=== PATIENT | male | born 1930 | race Caucasian/White ===

== ENCOUNTER 2021-04-24 19:09 | Emergency (ER) | payer MEDICARE, OTHER ==
[~2021-04-24] VITALS: Ht 175.3 cm; Wt 66.3 kg
[2021-04-24 19:27] VITALS: BP 166/57
== END 2021-04-24 20:13 | disposition home or self-care (01) ==
LOC: ER 19:10
DX: R60.9 Edema, unspecified (principal); I10 Essential (primary) hypertension
CPT/HCPCS: 99281

== ENCOUNTER 2022-01-08 12:04 | Inpatient (IN) | payer MEDICARE, OTHER ==
[~2022-01-08] VITALS: Ht 172.7 cm; Wt 74.2 kg
[2022-01-08] VITALS (9 sets, daily range): BP systolic 123–159; BP diastolic 44–59
[2022-01-08 13:01] LABS: BASOPHILS % (AUTO) 0.6 % (0-1); EOSINOPHILS # (AUTO) 0.1 X10'3 (0-0.9); LYMPHOCYTES # (AUTO) 0.9 X10'3 (1.1-4.8); LYMPHOCYTES % (AUTO) 14.8 % (21-51); MEAN CORPUSCULAR HEMOGLOBIN 24.9 PG (27.0-31.0); MEAN CORPUSCULAR HGB CONC 32.1 g/dL (33.0-36.5); MEAN CORPUSCULAR VOLUME 77.5 FL (78-98); MEAN PLATELET VOLUME 8.1 FL (7.4-10.4); MONOCYTES # (AUTO) 0.6 X10'3 (0-0.9); MONOCYTES % (AUTO) 10.2 % (2-12); NEUTROPHILS # (AUTO) 4.7 X10'3 (1.8-7.7); NEUTROPHILS % (AUTO) 73.4 % (42-75); PLATELET COUNT 213 X10'3 (140-440); RED BLOOD COUNT 2.79 X10'6 (4.70-6.10); RED CELL DISTRIBUTION WIDTH 18.7 % (11.5-14.5); WHITE BLOOD COUNT 6.4 X10'3 (4.5-11.0)
[2022-01-08 13:04] LABS: HEMATOCRIT 21.6 % (42.0-52.0); HEMOGLOBIN 6.9 g/dl (14.0-17.9)
[2022-01-08 13:15] LABS: ALANINE AMINOTRANSFERASE 13 U/L (12-78); ALBUMIN 3.5 G/DL (3.4-5.0); ALBUMIN/GLOBULIN RATIO 1.7 (1.1-1.5); ALKALINE PHOSPHATASE 69 IU/L (46-116); ANION GAP 11 (8-16); ASPARTATE AMINO TRANSFERASE 19 U/L (10-37); BILIRUBIN,TOTAL 0.4 MG/DL (0.1-1.0); BLOOD UREA NITROGEN 65 MG/DL (7-18); BUN/CREATININE RATIO 39.4 (5.4-32.0); CHLORIDE 103 MMOL/L (99-107); CREATININE 1.65 MG/DL (0.60-1.10); GLUCOSE 106 MG/DL (70-104); POTASSIUM 4.1 MMOL/L (3.5-5.1); SODIUM 138 MMOL/L (135-145); TOTAL CARBON DIOXIDE 24.5 MMOL/L (24-32); TOTAL PROTEIN 5.6 G/DL (6.4-8.2); eGFR 39 ML/MIN
[2022-01-08 13:57] LABS: ANISOCYTOSIS 2+; MICROCYTOSIS 1+; PLATELET ESTIMATE NORMAL
[2022-01-08 13:58] LABS: ELLIPTOCYTES 1+; SCHISTOCYTES FEW
[2022-01-08 13:59] LABS: ACANTHOCYTES FEW; BURR CELLS FEW
[2022-01-08] MEDS ORDERED: normal saline 1000ML IV soln IVB ONE (14:05)
[2022-01-08] MEDS ORDERED: aspirin 325mg tablet PO ONE (14:05)
[2022-01-08] MEDS ORDERED: iohexol 350MG/ML 100ml bottle IV ONE (14:25)
--- NOTE | 2022-01-08 14:29 | NUR ---
pt going to ct scan.
--- NOTE | 2022-01-08 14:30 | NUR ---
pt received 1l of n.s enroute .no admin the iv fluid .primary nurse is aware.
[2022-01-08] MEDS ORDERED: CefTRIAXone 2gm/NS 100ml IVPB 100 ML IV ONE (15:05)
[2022-01-08] MEDS: pantoprazole 40MG/NS 100ML BAG 100 ML IV SCH ×2 (15:22→15:56)
[2022-01-08 15:52] LABS: OCCULT BLOOD STOOL POSITIVE (Neg)
[2022-01-08] MEDS ORDERED: potassium Cl 20 mEq SR tablet PO PRN ×2 (16:25)
[2022-01-08] MEDS ORDERED: magnesium 4gm in 100ml NS 100 ML IV PRN (16:25)
[2022-01-08] MEDS ORDERED: naloxone 0.4 mg/ml inj IV PRN (16:25)
[2022-01-08] MEDS ORDERED: potassium CL 10mEq/100ml bag 100 ML IV PRN (16:25)
[2022-01-08] MEDS ORDERED: magnesium 2GM in 50ml NS 50 ML IV PRN (16:25)
[2022-01-08] MEDS ORDERED: magnesium Cl slow-release 64mg tablet PO PRN (16:25)
[2022-01-08] MEDS ORDERED: CLOP75TA34 PO (16:44)
[2022-01-08] MEDS ORDERED: ROSU10TA28 PO (16:44)
[2022-01-08] MEDS ORDERED: AMLO10TA13 PO (16:44)
[2022-01-08] MEDS ORDERED: FURO20TA4 PO (16:44)
[2022-01-08] MEDS ORDERED: LOSA25TA41 PO (16:44)
[2022-01-08] MEDS ORDERED: ASPI-1397 PO (16:44)
[2022-01-08] MEDS ORDERED: CHLO25TA10 PO (16:44)
[2022-01-08] MEDS ORDERED: APIX5TAB3 PO (16:44)
[2022-01-08] MEDS ORDERED: ISOS60TA71 PO (16:44)
[2022-01-08] MEDS ORDERED: NITR0.4T51 SL (16:44)
[2022-01-08 17:02] LABS: MAGNESIUM 2.4 MG/DL (1.5-2.4)
--- NOTE | 2022-01-08 18:49 | NUR ---
GREGORIO MACIAS. CONTACT INFO [phone]
[2022-01-08] MEDS: ipratropium/albuterol 3ml nebule NEB SCH (19:52)
[2022-01-08] MEDS: K and/or MAG REPLACEMENT MC SCH (20:00)
[2022-01-09] VITALS (10 sets, daily range): BP systolic 136–177; BP diastolic 44–62
[2022-01-09] MEDS: ipratropium/albuterol 3ml nebule NEB SCH ×7 (00:19→23:44)
[2022-01-09] MEDS: pantoprazole 40MG/NS 100ML BAG 100 ML IV SCH ×2 (03:28→08:13)
[2022-01-09 05:48] LABS: HEMATOCRIT 25.6 % (42.0-52.0); MEAN CORPUSCULAR VOLUME 79.7 FL (78-98); PLATELET COUNT 201 X10'3 (140-440); RED BLOOD COUNT 3.21 X10'6 (4.70-6.10); WHITE BLOOD COUNT 8.4 X10'3 (4.5-11.0)
[2022-01-09 05:52] LABS: BASOPHILS % (AUTO) 0.4 % (0-1); EOSINOPHILS # (AUTO) 0.1 X10'3 (0-0.9); EOSINOPHILS % (AUTO) 1.1 % (0-6); HEMOGLOBIN 8.5 g/dl (14.0-17.9); LYMPHOCYTES % (AUTO) 11.4 % (21-51); MEAN CORPUSCULAR HEMOGLOBIN 26.4 PG (27.0-31.0); MEAN CORPUSCULAR HGB CONC 33.1 g/dL (33.0-36.5); MEAN PLATELET VOLUME 8.2 FL (7.4-10.4); MONOCYTES % (AUTO) 11.9 % (2-12); NEUTROPHILS # (AUTO) 6.3 X10'3 (1.8-7.7); NEUTROPHILS % (AUTO) 75.2 % (42-75); RED CELL DISTRIBUTION WIDTH 18.7 % (11.5-14.5)
[2022-01-09 05:55] LABS: ALBUMIN 3.7 G/DL (3.4-5.0); ANION GAP 12 (8-16); BLOOD UREA NITROGEN 54 MG/DL (7-18); BUN/CREATININE RATIO 36.2 (5.4-32.0); CALCIUM 8.6 MG/DL (8.5-10.1); CHLORIDE 107 MMOL/L (99-107); CREATININE 1.49 MG/DL (0.60-1.10); GLUCOSE 122 MG/DL (70-104); MAGNESIUM 2.3 MG/DL (1.5-2.4); SODIUM 142 MMOL/L (135-145); TOTAL CARBON DIOXIDE 23.5 MMOL/L (24-32); eGFR 44 ML/MIN
--- NOTE | 2022-01-09 06:41 | NUR ---
Problems reprioritized. Patient report given, questions answered & plan of care reviewed with Isabel LAKE.
--- NOTE | 2022-01-09 06:50 | NUR ---
Patient in room PCU 3025. I have received report from Winter LAKE and had the opportunity to ask questions and assume patient care.
[2022-01-09] MEDS: K and/or MAG REPLACEMENT MC SCH ×2 (07:30→20:00)
--- NOTE | 2022-01-09 07:51 | NUR ---
PAGER ID: [phone] MESSAGE: Isabel [phone] re: Armando Minor in [id number]. Pt c/o chest pain, which is not new. Pt takes nitro for it. Can we get an order?
[2022-01-09] MEDS: nitroGLYCERIN 0.4mg SUBLingual tab SL PRN ×2 (08:12→08:22)
[2022-01-09] MEDS: levoFLOXACIN-Levaquin 500mg/D5 100 ML IV SCH (08:13)
[2022-01-09] MEDS ORDERED: fentaNYL/PF 50MCG/1 ML 2ML syringe ONE (10:15)
[2022-01-09] MEDS ORDERED: MIDAZolam 1 MG/ML 5ML VIAL ONE (10:16)
[2022-01-09] MEDS ORDERED: LIDOcaine Viscous 15ml cup ONE (10:16)
--- NOTE | 2022-01-09 11:10 | NUR ---
CALLED TILE GRADER TO CONFIRM HEART RHYTHM, TELE #12. AFIB IN 70S. Addendum: 01/09/22 at 1257 by Maria E Glaser RN Amended: Links added.
[2022-01-09] MEDS ORDERED: nitroGLYCERIN 0.4mg SUBLingual tab SL PRN (12:15)
--- NOTE | 2022-01-09 13:21 | NUR ---
Noted pt age in EMR. Pt admit DX GIB and critical aortic stenosis currently NPO per EMR. Pt has normal strength, reports no wt loss hx, and appears WD/WN per ER note. Will monitor for nutrition intervention needs. Addendum: 01/09/22 at [address] Amended: Links added.
--- NOTE | 2022-01-09 18:44 | NUR ---
Patient in room PCU 3025. I have received report from Isabel LAKE and had the opportunity to ask questions and assume patient care.
[2022-01-09] MEDS: losartan 25mg tablet PO SCH (20:00)
[2022-01-09] MEDS: pantoprazole 40mg Tablet.DR PO SCH (20:00)
[2022-01-09] MEDS: sucralfate 1 gm tablet PO SCH (21:14)
[2022-01-09] MEDS: atorvastatin 20mg tablet PO SCH (21:14)
[2022-01-09] MEDS: Melatonin 3mg tablet PO SCH (22:43)
[2022-01-10] MEDS ORDERED: Melatonin 3mg tablet PO ONE (01:15)
[2022-01-10 02:00] VITALS: BP 133/51
[2022-01-10] MEDS: ipratropium/albuterol 3ml nebule NEB SCH ×6 (03:00→23:00)
--- NOTE | 2022-01-10 06:50 | NUR ---
Problems reprioritized. Patient report given, questions answered & plan of care reviewed with DEWAT AND DESIRE.
[2022-01-10 06:54] LABS: BASOPHILS % (AUTO) 0.7 % (0-1); EOSINOPHILS # (AUTO) 0.3 X10'3 (0-0.9); EOSINOPHILS % (AUTO) 4.7 % (0-6); HEMATOCRIT 22.1 % (42.0-52.0); HEMOGLOBIN 7.2 g/dl (14.0-17.9); LYMPHOCYTES # (AUTO) 1.1 X10'3 (1.1-4.8); LYMPHOCYTES % (AUTO) 20.7 % (21-51); MEAN CORPUSCULAR HEMOGLOBIN 26.1 PG (27.0-31.0); MEAN CORPUSCULAR HGB CONC 32.6 g/dL (33.0-36.5); MEAN PLATELET VOLUME 8.1 FL (7.4-10.4); MONOCYTES # (AUTO) 0.7 X10'3 (0-0.9); MONOCYTES % (AUTO) 12.7 % (2-12); NEUTROPHILS # (AUTO) 3.3 X10'3 (1.8-7.7); NEUTROPHILS % (AUTO) 61.2 % (42-75); PLATELET COUNT 165 X10'3 (140-440); RED BLOOD COUNT 2.76 X10'6 (4.70-6.10); RED CELL DISTRIBUTION WIDTH 18.8 % (11.5-14.5); WHITE BLOOD COUNT 5.4 X10'3 (4.5-11.0)
[2022-01-10 07:16] LABS: ALBUMIN 3.3 G/DL (3.4-5.0); ANION GAP 8 (8-16); BLOOD UREA NITROGEN 34 MG/DL (7-18); CALCIUM 8.6 MG/DL (8.5-10.1); CHLORIDE 109 MMOL/L (99-107); CREATININE 1.26 MG/DL (0.60-1.10); GLUCOSE 103 MG/DL (70-104); MAGNESIUM 2.2 MG/DL (1.5-2.4); SODIUM 141 MMOL/L (135-145); TOTAL CARBON DIOXIDE 23.7 MMOL/L (24-32); eGFR 54 ML/MIN
[2022-01-10 07:47] LABS: ACANTHOCYTES FEW; ANISOCYTOSIS 2+; ELLIPTOCYTES 1+; PLATELET ESTIMATE NORMAL; POIKILOCYTOSIS FEW; POLYCHROMASIA FEW
[2022-01-10] MEDS: aspirin 81mg, enteric-coated 1 TAB TABLET.DR PO SCH (08:00)
[2022-01-10] MEDS: K and/or MAG REPLACEMENT MC SCH ×2 (08:00→20:00)
[2022-01-10] MEDS: clopidogrel 75mg tablet PO SCH (08:00)
--- NOTE | 2022-01-10 08:18 | NUR ---
PAGER ID: [phone] MESSAGE: Iván, Gene Room 3025B He was positive for occult blood in stool. Pt has Aspirin 81mg and Plavix 75mg do you still want us to give these. His Hgb is 7.2 and Hct 22.1 Is trending down. Please advise. Thank you Salma Ext [phone]
[2022-01-10] MEDS: levoFLOXACIN-Levaquin 500mg/D5 100 ML IV SCH (09:04)
[2022-01-10] MEDS: furosemide 20MG tablet PO SCH (09:48)
[2022-01-10] MEDS: losartan 25mg tablet PO SCH ×2 (09:49→20:55)
[2022-01-10] MEDS: isosorbide mononitrate 30mg tab.SR.24H PO SCH (09:49)
[2022-01-10] MEDS: pantoprazole 40mg Tablet.DR PO SCH ×2 (09:49→20:49)
[2022-01-10] MEDS: sucralfate 1 gm tablet PO SCH ×4 (09:50→20:50)
[2022-01-10] MEDS: amLODIPine 5mg tablet PO SCH (09:50)
[2022-01-10] MEDS: chlorthalidone 25mg tablet PO SCH (09:51)
--- NOTE | 2022-01-10 11:02 | NUR ---
Plavix & Asprin on hold per Dr. Cheng due to GI bleed and possible colonoscopy.
[2022-01-10 12:38] LABS: HEMATOCRIT 23.3 % (42.0-52.0); HEMOGLOBIN 7.6 g/dl (14.0-17.9); MEAN CORPUSCULAR HGB CONC 32.7 g/dL (33.0-36.5); MEAN CORPUSCULAR VOLUME 79.5 FL (78-98); PLATELET COUNT 176 X10'3 (140-440); RED BLOOD COUNT 2.93 X10'6 (4.70-6.10); RED CELL DISTRIBUTION WIDTH 19.1 % (11.5-14.5)
[2022-01-10 15:00] VITALS: BP 136/46
--- NOTE | 2022-01-10 16:28 | NUR ---
Dr Cheng gave the ok to restart Pt Aspirin 81mg and Plavix 75mg. PT has zero bloody stools today.
[2022-01-10 18:00] VITALS: BP 136/63
--- NOTE | 2022-01-10 18:46 | NUR ---
Patient in room PCU 3025. I have received report from MOLLY HARRIS. and had the opportunity to ask questions and assume patient care.
[2022-01-10] MEDS: Melatonin 3mg tablet PO SCH (20:49)
[2022-01-10] MEDS: atorvastatin 20mg tablet PO SCH (20:50)
[2022-01-10 22:00] VITALS: BP 140/54
--- NOTE | 2022-01-10 23:01 | NUR ---
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 WILL CHECK WITH PATIENT LATER TO SEE OF HE IS READY FOR SLEEP AID.
[2022-01-11] VITALS (13 sets, daily range): BP systolic 98–162; BP diastolic 31–93
[2022-01-11] MEDS: Melatonin 3mg tablet PO SCH (00:21)
--- NOTE | 2022-01-11 00:29 | NUR ---
MELATONIN ADMINISTERED FOR SLEEP NOW. PATIENT ANXIOUS ABOUT "CAN'T GET TO SLEEP". IN BED AFTER TAKING MED AND EYES CLOSED. WILL MONITOR.
[2022-01-11] MEDS: ipratropium/albuterol 3ml nebule NEB SCH ×6 (03:00→23:36)
--- NOTE | 2022-01-11 06:10 | NUR ---
RECEIVED REPORT FROM JAYA ROONEY
--- NOTE | 2022-01-11 06:20 | NUR ---
Problems reprioritized. Patient report given, questions answered & plan of care reviewed with [].
[2022-01-11 06:42] LABS: BASOPHILS % (AUTO) 0.6 % (0-1); EOSINOPHILS # (AUTO) 0.4 X10'3 (0-0.9); EOSINOPHILS % (AUTO) 5.9 % (0-6); LYMPHOCYTES # (AUTO) 1.5 X10'3 (1.1-4.8); MEAN CORPUSCULAR HEMOGLOBIN 26.1 PG (27.0-31.0); MEAN CORPUSCULAR HGB CONC 32.7 g/dL (33.0-36.5); MEAN CORPUSCULAR VOLUME 79.9 FL (78-98); MEAN PLATELET VOLUME 8.2 FL (7.4-10.4); MONOCYTES # (AUTO) 0.8 X10'3 (0-0.9); MONOCYTES % (AUTO) 12.2 % (2-12); NEUTROPHILS # (AUTO) 4.2 X10'3 (1.8-7.7); NEUTROPHILS % (AUTO) 60.3 % (42-75); PLATELET COUNT 174 X10'3 (140-440); RED BLOOD COUNT 2.66 X10'6 (4.70-6.10); WHITE BLOOD COUNT 6.9 X10'3 (4.5-11.0)
[2022-01-11 06:45] LABS: ALBUMIN 3.6 G/DL (3.4-5.0); ANION GAP 8 (8-16); BLOOD UREA NITROGEN 41 MG/DL (7-18); BUN/CREATININE RATIO 20.2 (5.4-32.0); CALCIUM 8.6 MG/DL (8.5-10.1); CHLORIDE 102 MMOL/L (99-107); CREATININE 2.03 MG/DL (0.60-1.10); GLUCOSE 99 MG/DL (70-104); MAGNESIUM 2.1 MG/DL (1.5-2.4); POTASSIUM 4.5 MMOL/L (3.5-5.1); SODIUM 134 MMOL/L (135-145); eGFR 31 ML/MIN
[2022-01-11 06:50] LABS: HEMATOCRIT 21.2 % (42.0-52.0); HEMOGLOBIN 6.9 g/dl (14.0-17.9)
--- NOTE | 2022-01-11 07:10 | NUR ---
WHEN THE HOSPITALIST LIST WAS UP, I SENT A PAGE TO HOSPITALIST ABOUT PT LOW H&H, NO NEW ORDERS AT THIS TIME
[2022-01-11] MEDS: losartan 25mg tablet PO SCH ×2 (07:36→20:41)
[2022-01-11] MEDS: furosemide 20MG tablet PO SCH (07:36)
[2022-01-11] MEDS: K and/or MAG REPLACEMENT MC SCH ×2 (07:36→20:00)
[2022-01-11] MEDS: aspirin 81mg, enteric-coated 1 TAB TABLET.DR PO SCH ×2 (07:36→11:32)
[2022-01-11] MEDS: clopidogrel 75mg tablet PO SCH (07:37)
[2022-01-11] MEDS: amLODIPine 5mg tablet PO SCH (07:37)
[2022-01-11] MEDS: chlorthalidone 25mg tablet PO SCH (07:39)
[2022-01-11] MEDS: sucralfate 1 gm tablet PO SCH ×4 (07:45→20:36)
[2022-01-11] MEDS: isosorbide mononitrate 30mg tab.SR.24H PO SCH (07:46)
[2022-01-11] MEDS: pantoprazole 40mg Tablet.DR PO SCH ×2 (07:46→20:36)
[2022-01-11] MEDS: levoFLOXACIN-Levaquin 500mg/D5 100 ML IV SCH (07:48)
[2022-01-11] MEDS ORDERED: benzocaine/menthol oral lozeng 1 EACH BOX MM PRN (14:30)
[2022-01-11] MEDS ORDERED: ipratropium 0.03% 30ML nasal spray NS SCH (15:05)
[2022-01-11 16:38] LABS: HEMATOCRIT 25.9 % (42.0-52.0); HEMOGLOBIN 8.6 g/dl (14.0-17.9); MEAN CORPUSCULAR HEMOGLOBIN 26.8 PG (27.0-31.0); MEAN CORPUSCULAR HGB CONC 33.3 g/dL (33.0-36.5); MEAN CORPUSCULAR VOLUME 80.3 FL (78-98); PLATELET COUNT 162 X10'3 (140-440); RED BLOOD COUNT 3.22 X10'6 (4.70-6.10); RED CELL DISTRIBUTION WIDTH 18.2 % (11.5-14.5); WHITE BLOOD COUNT 5.5 X10'3 (4.5-11.0)
--- NOTE | 2022-01-11 18:17 | NUR ---
GAVE REPORT TO JAYA ROONEY
--- NOTE | 2022-01-11 18:19 | NUR ---
GAVE REPORT TO JAYA ROONEY
--- NOTE | 2022-01-11 18:30 | NUR ---
Patient in room PCU 3025. I have received report from VIKTOR LAKE and had the opportunity to ask questions and assume patient care.
--- NOTE | 2022-01-11 18:59 | NUR ---
RC'D ORDER FOR XRAY OF L ELBOW, PT STATES HE FELL YEARS AGO AND BROKE HIS ELBOW, AND IT IS CAUSING HIM A SIGNIFICANT AMT OF DISCOMFORT. SLIGHT SWELLING ABSERVED. RC'D ORDERS ALSO FOR TYLENOL AND NORCO FOR PAIN AND RESTORIL FOR SLEEPLESSNESS.
[2022-01-11] MEDS ORDERED: acetaminophen 325mg tablet PO PRN (19:05)
[2022-01-11] MEDS ORDERED: HYDROcodone/acetaminophen 5mg/325mg tablet PO PRN (19:05)
[2022-01-11] MEDS ORDERED: temazepam 15mg capsule PO PRN (19:05)
[2022-01-11] MEDS ORDERED: diphenhydrAMINE 25mg capsule PO PRN (19:55)
--- NOTE | 2022-01-11 20:01 | NUR ---
PATIENT REFUSED XRAY OF ELBOW. STATES WHEN INJURY OCCURRED SURGEON TOLD HIM HE WOULD HAVE PAIN HE GETS OLDER. STATES NO NEED FOR XRAY
[2022-01-11] MEDS: atorvastatin 20mg tablet PO SCH (20:36)
[2022-01-11] MEDS ORDERED: Melatonin 3mg tablet PO SCH (21:00)
[2022-01-12 02:00] VITALS: BP 126/56
[2022-01-12] MEDS: ipratropium/albuterol 3ml nebule NEB SCH ×4 (02:33→15:02)
[2022-01-12 06:00] VITALS: BP 97/43
--- NOTE | 2022-01-12 06:29 | NUR ---
SLEPT WELL THROUGH THE NIGHT AFTER TAKING 9MG MELATONIN. REPORT GIVEN TO DEEDEE LAKE
[2022-01-12 06:30] LABS: BASOPHILS % (AUTO) 0.3 % (0-1); EOSINOPHILS # (AUTO) 0.3 X10'3 (0-0.9); EOSINOPHILS % (AUTO) 4.9 % (0-6); HEMATOCRIT 25.9 % (42.0-52.0); HEMOGLOBIN 8.5 g/dl (14.0-17.9); LYMPHOCYTES % (AUTO) 18.6 % (21-51); MEAN CORPUSCULAR HEMOGLOBIN 26.7 PG (27.0-31.0); MEAN CORPUSCULAR HGB CONC 32.8 g/dL (33.0-36.5); MEAN CORPUSCULAR VOLUME 81.3 FL (78-98); MEAN PLATELET VOLUME 8.3 FL (7.4-10.4); MONOCYTES # (AUTO) 0.8 X10'3 (0-0.9); MONOCYTES % (AUTO) 14.8 % (2-12); NEUTROPHILS # (AUTO) 3.3 X10'3 (1.8-7.7); NEUTROPHILS % (AUTO) 61.4 % (42-75); PLATELET COUNT 148 X10'3 (140-440); RED BLOOD COUNT 3.18 X10'6 (4.70-6.10); RED CELL DISTRIBUTION WIDTH 18.2 % (11.5-14.5); WHITE BLOOD COUNT 5.4 X10'3 (4.5-11.0)
[2022-01-12 06:55] LABS: ALBUMIN 3.5 G/DL (3.4-5.0); ANION GAP 8 (8-16); BLOOD UREA NITROGEN 32 MG/DL (7-18); BUN/CREATININE RATIO 20.6 (5.4-32.0); CALCIUM 8.6 MG/DL (8.5-10.1); CHLORIDE 105 MMOL/L (99-107); CREATININE 1.55 MG/DL (0.60-1.10); GLUCOSE 108 MG/DL (70-104); MAGNESIUM 2.2 MG/DL (1.5-2.4); POTASSIUM 3.7 MMOL/L (3.5-5.1); SODIUM 138 MMOL/L (135-145); TOTAL CARBON DIOXIDE 24.6 MMOL/L (24-32); eGFR 42 ML/MIN
[2022-01-12] MEDS: chlorthalidone 25mg tablet PO SCH (08:00)
[2022-01-12] MEDS: losartan 25mg tablet PO SCH (08:00)
[2022-01-12] MEDS: K and/or MAG REPLACEMENT MC SCH (08:00)
[2022-01-12] MEDS: amLODIPine 5mg tablet PO SCH (08:00)
[2022-01-12] MEDS: furosemide 20MG tablet PO SCH (08:46)
[2022-01-12] MEDS: isosorbide mononitrate 30mg tab.SR.24H PO SCH (08:46)
[2022-01-12] MEDS: sucralfate 1 gm tablet PO SCH ×2 (08:46→12:46)
[2022-01-12] MEDS: pantoprazole 40mg Tablet.DR PO SCH (08:47)
[2022-01-12] MEDS: aspirin 81mg, enteric-coated 1 TAB TABLET.DR PO SCH (08:47)
--- NOTE | 2022-01-12 10:20 | NUR ---
spoke with patients , updated regarding patients current status, patient sleeping at this time. Let know i would have call when he wakes up, patient hasnt been getting much sleep during the night for the last couple of days. stated she would call back around lunch time.
--- NOTE | 2022-01-12 10:40 | NUR ---
Initial: Pt admitted w/ anemia, nonbleeding gastric ulcer, gastritis, and hiatal hernia per EMR. Currently on Full liquid diet w/ avg intake 75% of meals, though recommend Advancing to Regular diet as soon as medically appropriate. LBM 01/10. Limited nutrition interventions available at this time, will continue to monitor and make recommendations as appropriate Recs: 1. Advance to Regular diet when medically feasible 2. Monitor need for ONS 3. Bowel care per rx 4. Weekly wts Addendum: 01/12/22 at [address] Amended: Links added.
[2022-01-12 11:00] VITALS: BP 129/45
[2022-01-12] MEDS ORDERED: levoFLOXACIN 500mg tablet PO SCH (11:00)
[2022-01-12] MEDS ORDERED: levoFLOXACIN 250mg tablet PO SCH (12:10)
--- NOTE | 2022-01-12 14:23 | NUR ---
1100 SVN TRIAGED. THERAPIST NOT AVAILABLE
[2022-01-12 14:35] LABS: HEMATOCRIT 28.6 % (42.0-52.0); HEMOGLOBIN 9.5 g/dl (14.0-17.9); MEAN CORPUSCULAR HEMOGLOBIN 27.2 PG (27.0-31.0); MEAN CORPUSCULAR HGB CONC 33.1 g/dL (33.0-36.5); MEAN CORPUSCULAR VOLUME 82.1 FL (78-98); MEAN PLATELET VOLUME 7.9 FL (7.4-10.4); PLATELET COUNT 193 X10'3 (140-440); RED BLOOD COUNT 3.48 X10'6 (4.70-6.10); RED CELL DISTRIBUTION WIDTH 18.2 % (11.5-14.5); WHITE BLOOD COUNT 6.5 X10'3 (4.5-11.0)
[2022-01-12 15:00] VITALS: BP 143/48
[2022-01-12] MEDS ORDERED: PANT40TA54 PO (15:10)
[2022-01-12] MEDS ORDERED: SUCR1TAB34 PO (15:10)
== END 2022-01-12 16:33 | disposition home or self-care (01) | DRG 377 ==
LOC: ER 12:05 → ED HOLD 16:32 → PCU 3S 23:45
PROVIDERS: ADMIT Internal Medicine; ATTEND Family Medicine
PROC: 30233N1 Transfusion of Nonautologous Red Blood Cells into Peripheral Vein, Percutaneous Approach (ICD-10-PCS; 2022-01-08)
PROC: B3251ZZ Computerized Tomography (CT Scan) of Bilateral Common Carotid Arteries using Low Osmolar Contrast (ICD-10-PCS; 2022-01-08)
PROC: B32G1ZZ Computerized Tomography (CT Scan) of Bilateral Vertebral Arteries using Low Osmolar Contrast (ICD-10-PCS; 2022-01-08)
PROC: B32R1ZZ Computerized Tomography (CT Scan) of Intracranial Arteries using Low Osmolar Contrast (ICD-10-PCS; 2022-01-08)
PROC: B3281ZZ Computerized Tomography (CT Scan) of Bilateral Internal Carotid Arteries using Low Osmolar Contrast (ICD-10-PCS; 2022-01-08)
PROC: 0DB68ZX Excision of Stomach, Via Natural or Artificial Opening Endoscopic, Diagnostic (ICD-10-PCS; principal; 2022-01-09)
DX: K25.4 Chronic or unspecified gastric ulcer with hemorrhage (principal); N17.0 Acute kidney failure with tubular necrosis; D68.59 Other primary thrombophilia; I48.20 Chronic atrial fibrillation, unspecified; D62 Acute posthemorrhagic anemia; E78.5 Hyperlipidemia, unspecified; I35.0 Nonrheumatic aortic (valve) stenosis; J44.9 Chronic obstructive pulmonary disease, unspecified; I65.21 Occlusion and stenosis of right carotid artery; K92.1 Melena; I12.9 Hypertensive chronic kidney disease with stage 1 through stage 4 chronic kidney disease, or unspecified chronic kidney disease; I25.10 Atherosclerotic heart disease of native coronary artery without angina pectoris; K29.70 Gastritis, unspecified, without bleeding; K44.9 Diaphragmatic hernia without obstruction or gangrene; N18.9 Chronic kidney disease, unspecified; Z79.01 Long term (current) use of anticoagulants; Z79.82 Long term (current) use of aspirin; Z95.5 Presence of coronary angioplasty implant and graft; Z79.899 Other long term (current) drug therapy
CPT/HCPCS: 36415; 36430; 43239; 70450; 70496; 70498; 71045; 80048; 80053; 82272; 83735; 83880; 84132; 84484; 85008; 85025; 85027; 85610; 86885; 86900; 86901; 86920; 87081; 88305; 88342; 93005; 94640; 94760; 99152; 99291; A4620; C9113; G0378; J0696; J1956; J2250; J3010; J7040; P9016; Q9967

== ENCOUNTER 2022-03-12 09:54 | Inpatient (IN) | payer MEDICARE ==
[2022-03-12] VITALS (10 sets, daily range): BP systolic 89–135; BP diastolic 36–93
[~2022-03-12] VITALS: Ht 172.7 cm; Wt 72.3 kg
[~2022-03-12 09:54] MED LIST: AMLO5TAB16 PO; APIX5TAB3 PO; ASPI-1397 PO; CHLO25TA10 PO; FURO-150 PO; ISOS60TA71 PO; LOSA25TA41 PO; NITR0.4T51 SL; PANT40TA54 PO; SUCR1TAB PO
[2022-03-12] MEDS ORDERED: nitroGLYCERIN 0.4mg SUBLingual tab SL PRN ×2 (10:30→18:40)
[2022-03-12] MEDS ORDERED: aspirin 81mg tab.chew PO ONE (10:30)
[2022-03-12 10:34] LABS: BASOPHILS % (AUTO) 0.4 % (0-1); EOSINOPHILS % (AUTO) 0.7 % (0-6); LYMPHOCYTES % (AUTO) 22.1 % (21-51); MEAN CORPUSCULAR HEMOGLOBIN 24.5 PG (27.0-31.0); MEAN CORPUSCULAR HGB CONC 31.8 g/dL (33.0-36.5); MEAN PLATELET VOLUME 7.8 FL (7.4-10.4); MONOCYTES # (AUTO) 0.5 X10'3 (0-0.9); MONOCYTES % (AUTO) 10.6 % (2-12); NEUTROPHILS # (AUTO) 3.1 X10'3 (1.8-7.7); NEUTROPHILS % (AUTO) 66.2 % (42-75); PLATELET COUNT 172 X10'3 (140-440); RED BLOOD COUNT 2.21 X10'6 (4.70-6.10); RED CELL DISTRIBUTION WIDTH 16.8 % (11.5-14.5); WHITE BLOOD COUNT 4.7 X10'3 (4.5-11.0)
[2022-03-12 10:37] LABS: HEMOGLOBIN 5.4 g/dl (14.0-17.9)
[2022-03-12] MEDS ORDERED: ondansetron/PF 4mg/2ml inj IV ONE (10:40)
[2022-03-12] MEDS ORDERED: morphine 4 MG/ML inj SYRINge IV PRN (10:40)
[2022-03-12] MEDS ORDERED: normal saline 1000ML IV soln IVB ONE (10:40)
[2022-03-12 10:46] LABS: ALANINE AMINOTRANSFERASE 10 U/L (12-78); ALBUMIN 3.7 G/DL (3.4-5.0); ALBUMIN/GLOBULIN RATIO 1.7 (1.1-1.5); ALKALINE PHOSPHATASE 56 IU/L (46-116); ANION GAP 11 (8-16); ASPARTATE AMINO TRANSFERASE 13 U/L (10-37); BILIRUBIN,TOTAL 0.4 MG/DL (0.1-1.0); BLOOD UREA NITROGEN 84 MG/DL (7-18); BUN/CREATININE RATIO 34.3 (5.4-32.0); CALCIUM 8.6 MG/DL (8.5-10.1); CHLORIDE 103 MMOL/L (99-107); CREATININE 2.45 MG/DL (0.60-1.10); GLUCOSE 103 MG/DL (70-104); POTASSIUM 4.2 MMOL/L (3.5-5.1); SODIUM 139 MMOL/L (135-145); TOTAL CARBON DIOXIDE 24.7 MMOL/L (24-32); TOTAL PROTEIN 5.9 G/DL (6.4-8.2); eGFR 25 ML/MIN
[2022-03-12 11:12] LABS: APTT 24 SECONDS (22-32)
[2022-03-12] MEDS ORDERED: fentaNYL/PF 50MCG/1 ML 2ML syringe IV ONE (11:20)
--- NOTE | 2022-03-12 11:22 | NUR ---
NOTIFIED NADINE WAYNE THAT PT PAIN IS WORSE AFTER THE MORPHINE AND NITRO TAB ,NO RELIEF , PER PROVIDER HE WILL WORK ON IT.NEPHEW AT BEDSIDE MADE AWARE.
[2022-03-12] MEDS ORDERED: LORazepam 2 mg/ml vial IV ONE (12:05)
--- NOTE | 2022-03-12 13:22 | NUR ---
DR ALLAN AND NADINE WAYNE AWARE OF PATIENT CONDITION STILL C/O CP AFTER RECIVING ATIVIAN,MORPHINE,FENTNYL ,NO RELIEF ,BP DROP DOWN TO 89/70 . PER AND NADINE WAYNE GIVE 1 L N.S BOLUS.
[2022-03-12] MEDS ORDERED: normal saline 1000ml 1,000 ML IV ONE (13:25)
[2022-03-12] MEDS ORDERED: potassium CL 10mEq/100ml bag 100 ML IV PRN (14:25)
[2022-03-12] MEDS: normal saline 1000ml 1,000 ML IV SCH (14:25)
[2022-03-12] MEDS ORDERED: magnesium hydroxide 30ml (MOM) UD suspension PO PRN (14:25)
[2022-03-12] MEDS ORDERED: morphine 2 MG/ML inj. syringe IV PRN ×2 (14:25)
[2022-03-12] MEDS ORDERED: POTASSIUM BICARB 20meq eff tab 20 MEQ TABLET.EFF PO PRN ×2 (14:25)
[2022-03-12] MEDS ORDERED: magnesium 4gm in 100ml NS 100 ML IV PRN (14:25)
[2022-03-12] MEDS ORDERED: ondansetron/PF 4mg/2ml inj IV PRN (14:25)
[2022-03-12] MEDS ORDERED: acetaminophen 325mg tablet PO PRN (14:25)
[2022-03-12] MEDS ORDERED: mag hydrox/Alum hydrox/simeth 30ml oral suspension PO PRN (14:25)
[2022-03-12] MEDS ORDERED: magnesium 2GM in 50ml NS 50 ML IV PRN (14:25)
[2022-03-12] MEDS ORDERED: magnesium Cl slow-release 64mg tablet PO PRN (14:25)
[2022-03-12 14:46] LABS: MAGNESIUM 2.3 MG/DL (1.5-2.4)
--- NOTE | 2022-03-12 15:18 | NUR ---
ATTEMPTED TO CALL REPORT BUT PRIMARY RN AT CT SCAN.
[2022-03-12] MEDS: pantoprazole 40MG/NS 100ML BAG 100 ML IV SCH ×2 (15:19→20:53)
[2022-03-12] MEDS ORDERED: iohexol 350MG/ML 100ml bottle IV ONE (16:00)
[2022-03-12] MEDS ORDERED: pantoprazole 40MG/NS 100ML BAG 100 ML IV SCH (16:00)
--- NOTE | 2022-03-12 16:09 | NUR ---
contacted Serina, family member for up dated med list, , she will call back with up dated list
[2022-03-12] MEDS ORDERED: FURO-149 PO (16:47)
[2022-03-12] MEDS ORDERED: AMLO10TA13 PO (16:47)
[2022-03-12] MEDS ORDERED: ROSU10TA2 PO (16:47)
[2022-03-12] MEDS ORDERED: LOP12.5T PO (16:49)
--- NOTE | 2022-03-12 16:53 | NUR ---
Patient is comfortable lying in bed, no distressful no complain of pain, alert/oriented x 2. Call light is on reach.
[2022-03-12 18:24] LABS: HEMATOCRIT 23.6 % (42.0-52.0); HEMOGLOBIN 7.5 g/dl (14.0-17.9); MEAN CORPUSCULAR HEMOGLOBIN 25.3 PG (27.0-31.0); MEAN CORPUSCULAR HGB CONC 31.7 g/dL (33.0-36.5); MEAN CORPUSCULAR VOLUME 79.8 FL (78-98); MEAN PLATELET VOLUME 8.4 FL (7.4-10.4); PLATELET COUNT 170 X10'3 (140-440); RED BLOOD COUNT 2.96 X10'6 (4.70-6.10); WHITE BLOOD COUNT 7.7 X10'3 (4.5-11.0)
--- NOTE | 2022-03-12 19:03 | NUR ---
Patient in room PCU 3018A. I have received report from TORIBIO LAKE and had the opportunity to ask questions and assume patient care.
[2022-03-12] MEDS: pantoprazole 40mg Tablet.DR PO SCH (20:00)
[2022-03-12] MEDS: K and/or MAG REPLACEMENT MC SCH (20:00)
[2022-03-12] MEDS: sucralfate 1 gm tablet PO SCH (20:14)
[2022-03-12] MEDS: losartan 25mg tablet PO SCH (20:19)
[2022-03-12] MEDS: docusate sod 100mg capsule PO SCH (20:19)
--- NOTE | 2022-03-12 21:15 | NUR ---
pt has protonix 40mg/NS 100ML BAG ACTIVE AND RUNNING .HE HAS BEEN PRESCRIBED PROTONIX 40 MG TAB.SHOULD HE CONTINUE WITH BOTH.
--- NOTE | 2022-03-12 21:18 | NUR ---
ADVICED TO HOLD PROTONIX 40 MG TAB AND CONTINUE WITH THE INFUSION TILL MORNING
[2022-03-13] VITALS (10 sets, daily range): BP systolic 87–120; BP diastolic 34–82
[2022-03-13] MEDS: Melatonin 3mg tablet PO PRN ×2 (00:13→21:29)
[2022-03-13] MEDS: normal saline 1000ml 1,000 ML IV SCH ×4 (00:25→23:20)
[2022-03-13] MEDS: pantoprazole 40MG/NS 100ML BAG 100 ML IV SCH ×5 (02:05→22:15)
[2022-03-13 06:24] LABS: BASOPHILS % (AUTO) 0.3 % (0-1); EOSINOPHILS # (AUTO) 0.1 X10'3 (0-0.9); EOSINOPHILS % (AUTO) 1.4 % (0-6); HEMATOCRIT 23.2 % (42.0-52.0); HEMOGLOBIN 7.4 g/dl (14.0-17.9); LYMPHOCYTES # (AUTO) 1.4 X10'3 (1.1-4.8); LYMPHOCYTES % (AUTO) 22.9 % (21-51); MEAN CORPUSCULAR HEMOGLOBIN 25.6 PG (27.0-31.0); MEAN CORPUSCULAR HGB CONC 31.7 g/dL (33.0-36.5); MEAN CORPUSCULAR VOLUME 80.7 FL (78-98); MEAN PLATELET VOLUME 8.6 FL (7.4-10.4); MONOCYTES # (AUTO) 0.9 X10'3 (0-0.9); MONOCYTES % (AUTO) 14.7 % (2-12); NEUTROPHILS # (AUTO) 3.8 X10'3 (1.8-7.7); NEUTROPHILS % (AUTO) 60.7 % (42-75); PLATELET COUNT 158 X10'3 (140-440); RED BLOOD COUNT 2.88 X10'6 (4.70-6.10); WHITE BLOOD COUNT 6.3 X10'3 (4.5-11.0)
--- NOTE | 2022-03-13 06:41 | NUR ---
Problems reprioritized. Patient report given, questions answered & plan of care reviewed with MARISABEL LAKE
[2022-03-13 06:47] LABS: ALBUMIN 3.3 G/DL (3.4-5.0); ANION GAP 9 (8-16); BLOOD UREA NITROGEN 70 MG/DL (7-18); BUN/CREATININE RATIO 35.2 (5.4-32.0); CALCIUM 8.6 MG/DL (8.5-10.1); CHLORIDE 112 MMOL/L (99-107); CREATININE 1.99 MG/DL (0.60-1.10); GLUCOSE 97 MG/DL (70-104); MAGNESIUM 2.4 MG/DL (1.5-2.4); POTASSIUM 4.4 MMOL/L (3.5-5.1); SODIUM 143 MMOL/L (135-145); TOTAL CARBON DIOXIDE 22.4 MMOL/L (24-32); eGFR 32 ML/MIN
[2022-03-13] MEDS ORDERED: aspirin 81mg, enteric-coated 1 TAB TABLET.DR PO SCH (08:00)
[2022-03-13] MEDS: atorvastatin 20mg tablet PO SCH (09:51)
[2022-03-13] MEDS: metoprolol tartrate 25mg tablet PO SCH (09:52)
[2022-03-13] MEDS: amLODIPine 5mg tablet PO SCH (09:52)
[2022-03-13] MEDS: sucralfate 1 gm tablet PO SCH ×4 (09:52→21:33)
[2022-03-13] MEDS: pantoprazole 40mg Tablet.DR PO SCH (09:53)
[2022-03-13] MEDS: chlorthalidone 25mg tablet PO SCH (09:53)
[2022-03-13] MEDS: docusate sod 100mg capsule PO SCH ×2 (09:53→21:33)
[2022-03-13] MEDS: furosemide 40mg tablet PO SCH (09:53)
[2022-03-13] MEDS: isosorbide mononitrate 30mg tab.SR.24H PO SCH (09:53)
[2022-03-13] MEDS: K and/or MAG REPLACEMENT MC SCH ×2 (09:54→20:00)
--- NOTE | 2022-03-13 10:00 | NUR ---
Malnutrition consult: Pt unsure of wt loss however reports decreased appetite per malnutrition risk screen with RN. Current documented wt isn't scaled however is stable with recent scaled wt hx in EMR. Pt documented with 25% PO intake of first clear liquid meal though historically eats well during recent admits with mostly 75-100% PO intake with no texture modification. Recommend advancing to regular diet as medically indicated. Pt with no documented decrease in muscle strength or edema and per ED report appears well developed well nourished. Pt currently lacks a minimum of two criteria for malnutrition. Will continue to follow. Addendum: 03/13/22 at [address] Amended: Links added.
[2022-03-13] MEDS: losartan 25mg tablet PO SCH (21:33)
--- NOTE | 2022-03-13 22:40 | NUR ---
pt in rm 3018a has been aggressive and agitated .he cut his iv tubing which lead to him bleeding .not following order .can he have ativan and restraint order
[2022-03-13] MEDS: ziprasidone IM 20mg inj **IM only IM PRN (23:12)
[2022-03-14 02:00] VITALS: BP 139/99
[2022-03-14] MEDS: pantoprazole 40MG/NS 100ML BAG 100 ML IV SCH ×6 (03:04→22:16)
--- NOTE | 2022-03-14 05:02 | NUR ---
pt became restless and agitated during the shift, removed his tele wires and ripped off his iv tubing which cause him to bleed.He refused to obey command. notified and he ordered ziprasidone im 20 mg which was given.
[2022-03-14 06:30] VITALS: BP 126/78
--- NOTE | 2022-03-14 06:30 | NUR ---
Patient in room PCU 3018. I have received report from JAYA Coelho and had the opportunity to ask questions and assume patient care.
[2022-03-14 06:35] LABS: BASOPHILS % (AUTO) 0.5 % (0-1); EOSINOPHILS # (AUTO) 0.2 X10'3 (0-0.9); EOSINOPHILS % (AUTO) 2.3 % (0-6); HEMATOCRIT 26.2 % (42.0-52.0); HEMOGLOBIN 8.4 g/dl (14.0-17.9); LYMPHOCYTES # (AUTO) 1.8 X10'3 (1.1-4.8); LYMPHOCYTES % (AUTO) 25.5 % (21-51); MEAN CORPUSCULAR HEMOGLOBIN 25.9 PG (27.0-31.0); MEAN CORPUSCULAR HGB CONC 32.2 g/dL (33.0-36.5); MEAN CORPUSCULAR VOLUME 80.5 FL (78-98); MEAN PLATELET VOLUME 8.5 FL (7.4-10.4); MONOCYTES # (AUTO) 0.8 X10'3 (0-0.9); MONOCYTES % (AUTO) 11.3 % (2-12); NEUTROPHILS # (AUTO) 4.3 X10'3 (1.8-7.7); NEUTROPHILS % (AUTO) 60.4 % (42-75); PLATELET COUNT 167 X10'3 (140-440); RED BLOOD COUNT 3.25 X10'6 (4.70-6.10); WHITE BLOOD COUNT 7.1 X10'3 (4.5-11.0)
[2022-03-14 07:02] LABS: ALBUMIN 3.5 G/DL (3.4-5.0); ANION GAP 9 (8-16); BLOOD UREA NITROGEN 59 MG/DL (7-18); BUN/CREATININE RATIO 28.8 (5.4-32.0); CALCIUM 8.5 MG/DL (8.5-10.1); CHLORIDE 109 MMOL/L (99-107); CREATININE 2.05 MG/DL (0.60-1.10); GLUCOSE 100 MG/DL (70-104); MAGNESIUM 2.2 MG/DL (1.5-2.4); POTASSIUM 4.3 MMOL/L (3.5-5.1); SODIUM 140 MMOL/L (135-145); TOTAL CARBON DIOXIDE 22.4 MMOL/L (24-32); eGFR 31 ML/MIN
[2022-03-14] MEDS: K and/or MAG REPLACEMENT MC SCH ×2 (08:00→19:43)
[2022-03-14] MEDS: metoprolol tartrate 25mg tablet PO SCH (10:02)
[2022-03-14 11:00] VITALS: BP 133/78
[2022-03-14] MEDS: isosorbide mononitrate 30mg tab.SR.24H PO SCH (11:11)
[2022-03-14] MEDS: docusate sod 100mg capsule PO SCH ×2 (11:11→20:13)
[2022-03-14] MEDS: atorvastatin 20mg tablet PO SCH (11:12)
[2022-03-14] MEDS: chlorthalidone 25mg tablet PO SCH (11:12)
[2022-03-14] MEDS: furosemide 40mg tablet PO SCH (11:12)
[2022-03-14] MEDS: amLODIPine 5mg tablet PO SCH (11:13)
[2022-03-14] MEDS: sucralfate 1 gm tablet PO SCH ×4 (11:13→20:13)
[2022-03-14] MEDS: normal saline 1000ml 1,000 ML IV SCH ×2 (11:18→22:16)
[2022-03-14 15:00] VITALS: BP 114/55
[2022-03-14 18:00] VITALS: BP 124/54
--- NOTE | 2022-03-14 18:15 | NUR ---
Problems reprioritized. Patient report given, questions answered & plan of care reviewed with JAYA Coelho.
[2022-03-14] MEDS: Melatonin 3mg tablet PO PRN (20:13)
[2022-03-14] MEDS: losartan 25mg tablet PO SCH (20:14)
[2022-03-14 22:00] VITALS: BP 122/63
[2022-03-15 02:00] VITALS: BP 98/50
[2022-03-15] MEDS: pantoprazole 40MG/NS 100ML BAG 100 ML IV SCH ×4 (04:25→17:58)
--- NOTE | 2022-03-15 06:24 | NUR ---
Problems reprioritized. Patient report given, questions answered & plan of care reviewed with Canelo LAKE.
--- NOTE | 2022-03-15 06:25 | NUR ---
Patient in room PCU 3018. I have received report from JAYA Coelho and had the opportunity to ask questions and assume patient care.
[2022-03-15 06:30] VITALS: BP 117/40
[2022-03-15 06:38] LABS: BASOPHILS % (AUTO) 0.5 % (0-1); EOSINOPHILS # (AUTO) 0.3 X10'3 (0-0.9); EOSINOPHILS % (AUTO) 6.7 % (0-6); HEMOGLOBIN 7.7 g/dl (14.0-17.9); LYMPHOCYTES # (AUTO) 1.1 X10'3 (1.1-4.8); LYMPHOCYTES % (AUTO) 22.7 % (21-51); MEAN CORPUSCULAR HEMOGLOBIN 25.9 PG (27.0-31.0); MEAN CORPUSCULAR HGB CONC 32.1 g/dL (33.0-36.5); MEAN CORPUSCULAR VOLUME 80.8 FL (78-98); MEAN PLATELET VOLUME 8.5 FL (7.4-10.4); MONOCYTES # (AUTO) 0.7 X10'3 (0-0.9); MONOCYTES % (AUTO) 13.8 % (2-12); NEUTROPHILS # (AUTO) 2.8 X10'3 (1.8-7.7); NEUTROPHILS % (AUTO) 56.3 % (42-75); PLATELET COUNT 155 X10'3 (140-440); RED BLOOD COUNT 2.96 X10'6 (4.70-6.10); RED CELL DISTRIBUTION WIDTH 17.5 % (11.5-14.5)
[2022-03-15 07:11] LABS: ALBUMIN 3.3 G/DL (3.4-5.0); ANION GAP 9 (8-16); BLOOD UREA NITROGEN 46 MG/DL (7-18); BUN/CREATININE RATIO 27.2 (5.4-32.0); CALCIUM 8.6 MG/DL (8.5-10.1); CHLORIDE 113 MMOL/L (99-107); CREATININE 1.69 MG/DL (0.60-1.10); GLUCOSE 97 MG/DL (70-104); POTASSIUM 3.8 MMOL/L (3.5-5.1); SODIUM 144 MMOL/L (135-145); TOTAL CARBON DIOXIDE 22.2 MMOL/L (24-32); eGFR 38 ML/MIN
[2022-03-15] MEDS: K and/or MAG REPLACEMENT MC SCH ×2 (07:34→19:55)
[2022-03-15] MEDS: sucralfate 1 gm tablet PO SCH ×4 (08:46→21:00)
[2022-03-15] MEDS: atorvastatin 20mg tablet PO SCH (08:46)
[2022-03-15] MEDS: furosemide 40mg tablet PO SCH (08:46)
[2022-03-15] MEDS: docusate sod 100mg capsule PO SCH ×2 (08:46→19:54)
[2022-03-15] MEDS: normal saline 1000ml 1,000 ML IV SCH ×2 (08:46→17:58)
[2022-03-15] MEDS: amLODIPine 5mg tablet PO SCH (08:46)
[2022-03-15] MEDS: chlorthalidone 25mg tablet PO SCH (08:46)
[2022-03-15] MEDS: isosorbide mononitrate 30mg tab.SR.24H PO SCH (08:47)
[2022-03-15] MEDS: metoprolol tartrate 25mg tablet PO SCH (08:47)
[2022-03-15 11:00] VITALS: BP 109/48
--- NOTE | 2022-03-15 14:10 | NUR ---
MD notified of HR intermittently drops into the 30s after having given 25mg metoprolol this AM.
[2022-03-15 15:00] VITALS: BP 99/38
[2022-03-15 18:00] VITALS: BP 116/36
--- NOTE | 2022-03-15 18:10 | NUR ---
Problems reprioritized. Patient report given, questions answered & plan of care reviewed with JAYA Serrano.
[2022-03-15] MEDS: losartan 25mg tablet PO SCH (21:00)
[2022-03-15 22:00] VITALS: BP 131/48
--- NOTE | 2022-03-15 22:45 | NUR ---
Patient in room U 3023. I have received report from JAYA Serrano and had the opportunity to ask questions and assume patient care. Pt resting with eyes closed, rr wnl no complaints. Addendum: 03/16/22 at 0015 by Melba Laguerre RN Amended: Links added.
[2022-03-16] MEDS: pantoprazole 40MG/NS 100ML BAG 100 ML IV SCH ×3 (01:22→11:11)
[2022-03-16 01:54] VITALS: BP 114/34
[2022-03-16] MEDS: normal saline 1000ml 1,000 ML IV SCH ×2 (04:06→17:39)
--- NOTE | 2022-03-16 06:08 | NUR ---
Problems reprioritized. Patient report given, questions answered & plan of care reviewed with JAYA Lacy. Addendum: 03/16/22 at 0608 by Melba Laguerre RN Amended: Links added.
[2022-03-16 06:19] LABS: BASOPHILS % (AUTO) 0.5 % (0-1); EOSINOPHILS # (AUTO) 0.3 X10'3 (0-0.9); EOSINOPHILS % (AUTO) 5.1 % (0-6); HEMATOCRIT 23.4 % (42.0-52.0); HEMOGLOBIN 7.4 g/dl (14.0-17.9); LYMPHOCYTES # (AUTO) 1.6 X10'3 (1.1-4.8); LYMPHOCYTES % (AUTO) 30.6 % (21-51); MEAN CORPUSCULAR HEMOGLOBIN 25.7 PG (27.0-31.0); MEAN CORPUSCULAR HGB CONC 31.7 g/dL (33.0-36.5); MEAN CORPUSCULAR VOLUME 80.9 FL (78-98); MEAN PLATELET VOLUME 8.6 FL (7.4-10.4); MONOCYTES # (AUTO) 0.7 X10'3 (0-0.9); MONOCYTES % (AUTO) 13.5 % (2-12); NEUTROPHILS # (AUTO) 2.5 X10'3 (1.8-7.7); NEUTROPHILS % (AUTO) 50.3 % (42-75); PLATELET COUNT 156 X10'3 (140-440); RED BLOOD COUNT 2.89 X10'6 (4.70-6.10); RED CELL DISTRIBUTION WIDTH 17.4 % (11.5-14.5); WHITE BLOOD COUNT 5.1 X10'3 (4.5-11.0)
[2022-03-16 06:24] LABS: ALBUMIN 3.2 G/DL (3.4-5.0); ANION GAP 11 (8-16); BLOOD UREA NITROGEN 38 MG/DL (7-18); BUN/CREATININE RATIO 24.7 (5.4-32.0); CALCIUM 8.4 MG/DL (8.5-10.1); CHLORIDE 111 MMOL/L (99-107); CREATININE 1.54 MG/DL (0.60-1.10); GLUCOSE 93 MG/DL (70-104); MAGNESIUM 1.7 MG/DL (1.5-2.4); POTASSIUM 3.7 MMOL/L (3.5-5.1); SODIUM 143 MMOL/L (135-145); TOTAL CARBON DIOXIDE 21.4 MMOL/L (24-32); eGFR 43 ML/MIN
[2022-03-16 07:00] VITALS: BP 143/93
[2022-03-16] MEDS: K and/or MAG REPLACEMENT MC SCH ×2 (08:00→19:50)
[2022-03-16] MEDS: docusate sod 100mg capsule PO SCH ×2 (08:00→19:53)
[2022-03-16] MEDS: isosorbide mononitrate 30mg tab.SR.24H PO SCH (09:14)
[2022-03-16] MEDS: chlorthalidone 25mg tablet PO SCH (09:15)
[2022-03-16] MEDS: amLODIPine 5mg tablet PO SCH (09:15)
[2022-03-16] MEDS: furosemide 40mg tablet PO SCH (09:15)
[2022-03-16] MEDS: metoprolol tartrate 25mg tablet PO SCH (09:17)
[2022-03-16] MEDS: sucralfate 1 gm tablet PO SCH ×4 (09:17→20:44)
[2022-03-16] MEDS: atorvastatin 20mg tablet PO SCH (09:20)
--- NOTE | 2022-03-16 09:37 | NUR ---
Initial: Pt admitted w/ UGIB, acute blood loss anemia, and acute renal failure per EMR. Previously on Clear/full liquids, has been advanced to Heart Healthy 03/15 w/ 100% intake of meals. Recommend liberalizing to Regular diet given age. LBM 03/15 receiving routine colace. No nutrition intervention implemented at this time, will continue to monitor. Recs: 1. Liberalize to Regular diet 2. Bowel care per rx 3. Scaled wts Addendum: 03/16/22 at [address] Amended: Links added.
[2022-03-16 11:00] VITALS: BP 133/45
--- NOTE | 2022-03-16 13:10 | NUR ---
patient HR noticed by television picture tube rebuilder Maritza that patient was running low HR of 30's intermittently. DR Sen notified and viewed strip. Adjustments made with meds. Swallow study done by richa speech therapist as patient had trouble swallowing meds. patient cleared to eat regular food, and to take meds in apple sauce for easier swallowing. VS retaken HR 50. will continue to monitor
[2022-03-16 15:00] VITALS: BP 124/40
[2022-03-16] MEDS ORDERED: ondansetron 4mg rapidly disintigrating tab PO PRN (15:20)
--- NOTE | 2022-03-16 17:55 | NUR ---
patient ambulated 600ft, appears stable
[2022-03-16 18:00] VITALS: BP 124/43
--- NOTE | 2022-03-16 18:18 | NUR ---
Problems reprioritized. Patient report given, questions answered & plan of care reviewed with evans LAKE.
[2022-03-16] MEDS: pantoprazole 40mg Tablet.DR PO SCH (20:44)
[2022-03-16] MEDS: acetaminophen 325mg tablet PO SCH (20:46)
[2022-03-16] MEDS: losartan 25mg tablet PO SCH (21:52)
[2022-03-16 22:00] VITALS: BP 121/46
[2022-03-17] MEDS: Melatonin 3mg tablet PO PRN (00:25)
[2022-03-17] MEDS: ziprasidone IM 20mg inj **IM only IM PRN (00:43)
[2022-03-17 02:00] VITALS: BP 132/45
[2022-03-17] MEDS: normal saline 1000ml 1,000 ML IV SCH (04:15)
[2022-03-17 06:00] VITALS: BP 142/55
--- NOTE | 2022-03-17 06:31 | NUR ---
Patient in room PCU 3023. I have received report from Latanya LAKE and had the opportunity to ask questions and assume patient care.
[2022-03-17 06:33] LABS: BASOPHILS % (AUTO) 0.4 % (0-1); EOSINOPHILS # (AUTO) 0.3 X10'3 (0-0.9); EOSINOPHILS % (AUTO) 5.5 % (0-6); HEMATOCRIT 24.6 % (42.0-52.0); HEMOGLOBIN 7.7 g/dl (14.0-17.9); LYMPHOCYTES # (AUTO) 1.1 X10'3 (1.1-4.8); LYMPHOCYTES % (AUTO) 24.6 % (21-51); MEAN CORPUSCULAR HEMOGLOBIN 25.2 PG (27.0-31.0); MEAN CORPUSCULAR HGB CONC 31.3 g/dL (33.0-36.5); MEAN CORPUSCULAR VOLUME 80.5 FL (78-98); MEAN PLATELET VOLUME 8.6 FL (7.4-10.4); MONOCYTES # (AUTO) 0.7 X10'3 (0-0.9); MONOCYTES % (AUTO) 15.8 % (2-12); NEUTROPHILS # (AUTO) 2.5 X10'3 (1.8-7.7); NEUTROPHILS % (AUTO) 53.7 % (42-75); PLATELET COUNT 156 X10'3 (140-440); RED BLOOD COUNT 3.05 X10'6 (4.70-6.10); RED CELL DISTRIBUTION WIDTH 17.6 % (11.5-14.5); WHITE BLOOD COUNT 4.6 X10'3 (4.5-11.0)
[2022-03-17 07:08] LABS: ALBUMIN 3.5 G/DL (3.4-5.0); ANION GAP 9 (8-16); BLOOD UREA NITROGEN 35 MG/DL (7-18); BUN/CREATININE RATIO 25.2 (5.4-32.0); CALCIUM 8.4 MG/DL (8.5-10.1); CHLORIDE 109 MMOL/L (99-107); CREATININE 1.39 MG/DL (0.60-1.10); GLUCOSE 91 MG/DL (70-104); POTASSIUM 3.4 MMOL/L (3.5-5.1); SODIUM 142 MMOL/L (135-145); TOTAL CARBON DIOXIDE 24.5 MMOL/L (24-32); eGFR 48 ML/MIN
[2022-03-17] MEDS: docusate sod 100mg capsule PO SCH (07:31)
[2022-03-17] MEDS: sucralfate 1 gm tablet PO SCH (07:31)
[2022-03-17] MEDS: atorvastatin 20mg tablet PO SCH (07:31)
[2022-03-17] MEDS: acetaminophen 325mg tablet PO SCH (07:32)
[2022-03-17] MEDS: pantoprazole 40mg Tablet.DR PO SCH (07:32)
[2022-03-17] MEDS: chlorthalidone 25mg tablet PO SCH (07:32)
[2022-03-17] MEDS: furosemide 40mg tablet PO SCH (07:32)
[2022-03-17 07:33] VITALS: BP_SYST 142
[2022-03-17] MEDS: amLODIPine 5mg tablet PO SCH (07:33)
[2022-03-17] MEDS: isosorbide mononitrate 30mg tab.SR.24H PO SCH (07:33)
[2022-03-17] MEDS: K and/or MAG REPLACEMENT MC SCH (08:00)
[2022-03-17 08:49] LABS: ANISOCYTOSIS 1+; LARGE PLATELETS FEW; PLATELET ESTIMATE NORMAL
[2022-03-17 08:50] LABS: ACANTHOCYTES FEW
--- NOTE | 2022-03-17 11:35 | NUR ---
patient up and about in room eager to go home. Seen By DR Sen is for DC. All DC instructions given to patient and explained to nephew on picker . PIV x2 removed intact. . Patient DC home via private car to home with family in stable condition.
== END 2022-03-17 11:05 | disposition home health service (06) | DRG 377 ==
LOC: ER 09:55 → ED HOLD 14:25 → PCU 3S 16:43
PROVIDERS: ADMIT Family Medicine; ATTEND Family Medicine
PROC: 30233N1 Transfusion of Nonautologous Red Blood Cells into Peripheral Vein, Percutaneous Approach (ICD-10-PCS; principal; 2022-03-12)
PROC: B4201ZZ Computerized Tomography (CT Scan) of Abdominal Aorta using Low Osmolar Contrast (ICD-10-PCS; 2022-03-12)
PROC: B4241ZZ Computerized Tomography (CT Scan) of Superior Mesenteric Artery using Low Osmolar Contrast (ICD-10-PCS; 2022-03-12)
PROC: B4281ZZ Computerized Tomography (CT Scan) of Bilateral Renal Arteries using Low Osmolar Contrast (ICD-10-PCS; 2022-03-12)
PROC: B42C1ZZ Computerized Tomography (CT Scan) of Pelvic Arteries using Low Osmolar Contrast (ICD-10-PCS; 2022-03-12)
PROC: B42H1ZZ Computerized Tomography (CT Scan) of Bilateral Lower Extremity Arteries using Low Osmolar Contrast (ICD-10-PCS; 2022-03-12)
PROC: B4211ZZ Computerized Tomography (CT Scan) of Celiac Artery using Low Osmolar Contrast (ICD-10-PCS; 2022-03-12)
DX: K25.4 Chronic or unspecified gastric ulcer with hemorrhage (principal); N17.0 Acute kidney failure with tubular necrosis; D62 Acute posthemorrhagic anemia; F05 Delirium due to known physiological condition; I13.0 Hypertensive heart and chronic kidney disease with heart failure and stage 1 through stage 4 chronic kidney disease, or unspecified chronic kidney disease; I48.20 Chronic atrial fibrillation, unspecified; J44.9 Chronic obstructive pulmonary disease, unspecified; E78.5 Hyperlipidemia, unspecified; G31.84 Mild cognitive impairment of uncertain or unknown etiology; I25.10 Atherosclerotic heart disease of native coronary artery without angina pectoris; I50.9 Heart failure, unspecified; N18.9 Chronic kidney disease, unspecified; R00.1 Bradycardia, unspecified; R07.89 Other chest pain; Z79.01 Long term (current) use of anticoagulants
CPT/HCPCS: 36415; 36430; 71045; 71275; 74174; 80048; 80053; 83735; 83880; 84484; 85008; 85025; 85027; 85610; 85730; 86885; 86900; 86901; 86920; 87081; 92508; 92616; 93005; 96361; 96374; 96375; 97116; 97161; 99291; A6222; A6258; A6402; A6449; C9113; G0378; J2060; J2270; J2405; J3010; J3486; J3490; J7030; J7040; P9016; Q9967

== ENCOUNTER 2022-08-11 09:43 | Day surgery (SDC) | payer MEDICARE ==
[2022-08-11] VITALS (12 sets, daily range): BP systolic 132–158; BP diastolic 44–77
[~2022-08-11] VITALS: Ht 172.7 cm; Wt 71.8 kg
[~2022-08-11 09:43] MED LIST changes: +AMLO10TA13 PO; -AMLO5TAB16 PO; -APIX5TAB3 PO; +FURO-149 PO; -FURO-150 PO; +LOP12.5T PO; +ROSU10TA2 PO
[2022-08-11] MEDS ORDERED: normal saline 1000ml 1,000 ML IV SCH (10:05)
[2022-08-11] MEDS ORDERED: MIDAZolam 1mg/ml 10ml vial IV ONE (10:05)
[2022-08-11] MEDS ORDERED: fentaNYL/PF 50MCG/1 ML 2ML syringe IV ONE (10:05)
[2022-08-11 10:44] LABS: BASOPHILS % (AUTO) 0.7 % (0-1); EOSINOPHILS # (AUTO) 0.2 X10'3 (0-0.9); EOSINOPHILS % (AUTO) 3.6 % (0-6); HEMATOCRIT 26.2 % (42.0-52.0); HEMOGLOBIN 8.5 g/dl (14.0-17.9); LYMPHOCYTES # (AUTO) 1.1 X10'3 (1.1-4.8); LYMPHOCYTES % (AUTO) 20.2 % (21-51); MEAN CORPUSCULAR HEMOGLOBIN 26.8 PG (27.0-31.0); MEAN CORPUSCULAR HGB CONC 32.4 g/dL (33.0-36.5); MEAN CORPUSCULAR VOLUME 82.6 FL (78-98); MEAN PLATELET VOLUME 8.2 FL (7.4-10.4); MONOCYTES # (AUTO) 0.7 X10'3 (0-0.9); MONOCYTES % (AUTO) 12.3 % (2-12); NEUTROPHILS # (AUTO) 3.4 X10'3 (1.8-7.7); NEUTROPHILS % (AUTO) 63.2 % (42-75); PLATELET COUNT 162 X10'3 (140-440); RED BLOOD COUNT 3.17 X10'6 (4.70-6.10); RED CELL DISTRIBUTION WIDTH 26.4 % (11.5-14.5); WHITE BLOOD COUNT 5.3 X10'3 (4.5-11.0)
[2022-08-11 10:46] LABS: ALBUMIN 3.9 G/DL (3.4-5.0); ANION GAP 10 (8-16); BLOOD UREA NITROGEN 46 MG/DL (7-18); BUN/CREATININE RATIO 29.3 (5.4-32.0); CALCIUM 9.1 MG/DL (8.5-10.1); CHLORIDE 100 MMOL/L (99-107); CREATININE 1.57 MG/DL (0.60-1.10); GLUCOSE 114 MG/DL (70-104); POTASSIUM 3.5 MMOL/L (3.5-5.1); SODIUM 138 MMOL/L (135-145); TOTAL CARBON DIOXIDE 28.3 MMOL/L (24-32); eGFR 42 ML/MIN
[2022-08-11] MEDS ORDERED: FURO40TA4 PO (11:14)
[2022-08-11] MEDS ORDERED: POTA-82 PO (11:14)
[2022-08-11] MEDS ORDERED: ISOS30TA84 PO (11:14)
== END 2022-08-11 15:00 | disposition home or self-care (01) ==
LOC: SSTAY O 09:43 → EDSTATUS 12:30 → SSTAY O 15:00
PROVIDERS: ATTEND Student in an Organized Health Care Education/Training Program
DX: I34.0 Nonrheumatic mitral (valve) insufficiency (principal); I48.91 Unspecified atrial fibrillation; N18.9 Chronic kidney disease, unspecified; J44.9 Chronic obstructive pulmonary disease, unspecified; I13.0 Hypertensive heart and chronic kidney disease with heart failure and stage 1 through stage 4 chronic kidney disease, or unspecified chronic kidney disease; I50.9 Heart failure, unspecified; I25.10 Atherosclerotic heart disease of native coronary artery without angina pectoris; Z87.891 Personal history of nicotine dependence; Z79.899 Other long term (current) drug therapy; Z98.890 Other specified postprocedural states
CPT/HCPCS: 36415; 76376; 80048; 85025; 85610; 93312; 93321; 93325; J2250; J3010; J7030; A4620